=== PATIENT | male | born 1950 | race Caucasian/White ===

== ENCOUNTER 2021-06-10 13:11 | Emergency (ER) | payer OTHER ==
[~2021-06-10] VITALS: Ht 175.3 cm; Wt 102.4 kg
[2021-06-10 19:20] VITALS: BP 120/69
== END 2021-06-10 19:41 | disposition home or self-care (01) ==
LOC: ED 19:35
DX: U07.1 COVID-19 (principal); J12.82 Pneumonia due to coronavirus disease 2019
CPT/HCPCS: 36415; 71045; 80053; 85025; 87635; 99285; M0243